=== PATIENT | female | born 1950 | race African-American/Black ===

== ENCOUNTER 2019-01-10 07:54 | Emergency (ER) | payer OTHER ==
[~2019-01-10] VITALS: Ht 152.4 cm; Wt 46.3 kg
[2019-01-10] MEDS ORDERED: BUPROPION HCL75 MG PO (08:11)
[2019-01-10] MEDS ORDERED: COZAAR100 MG PO (08:11)
[2019-01-10] MEDS ORDERED: HYDRALAZINE HCL50 MG PO (08:12)
[2019-01-10] MEDS ORDERED: CLONIDINE HCL0.1 M1 PO (08:12)
[2019-01-10] MEDS ORDERED: BUMETANIDE1 MG PO (08:13)
== END 2019-01-10 12:41 | disposition home or self-care (01) ==
LOC: ER 07:54
DX: I16.0 Hypertensive urgency (principal); I10 Essential (primary) hypertension